=== PATIENT | male | born 1985 | race Caucasian/White ===

== ENCOUNTER 2017-08-03 00:23 | Emergency (ER) | payer OTHER ==
[2017-08-03 00:30] VITALS: BP 145/101; PULSE 94; RESP 16; TEMP 98.8; O2SAT 95
--- NOTE | 2017-08-03 00:32 | EDPHY ---
H & P Stated Complaint: jumped 8 feet out of a tree, felt pop in L foot, cannot WB on ball of foot HPI/ROS: HPI CHIEF COMPLAINT: Jumped out of a tree, left ankle pain. HISTORY OF PRESENT ILLNESS: This patient very pleasant 32-year-old male, no significant medical he does not take any daily medications he presents emergency room after states he climbed a tree he was coming out of the tree and fell 8 feet. He landed on his left foot. [place] a pop. He denies any significant pain. His left ankle is swollen. He is unable to fully plantar flex. He cannot stand on the front of his foot. Due to weakness. On exam he has an obvious Achilles tendon rupture. The ankle joint is swollen. He denies significant pain. Took ibuprofen prior to arrival. Past Medical History: Denies medical history Past Surgical History: Left hip surgery, right hand surgery Social History: Socially drinks, denies illicit drugs or tobacco. Family History: Noncontributory ROS REVIEW OF SYSTEMS: A comprehensive 10 point review of systems is otherwise negative aside from elements mentioned in the history of present illness. Exam Constitutional appears well nontoxic triage nursing summary reviewed, vital signs reviewed, awake/alert. Eyes normal conjunctivae and sclera, EOMI, PERRLA. HENT normal inspection, atraumatic, moist mucus membranes, no epistaxis, neck supple/ no meningismus, no raccoon eyes. Respiratory clear to auscultation bilaterally, normal breath sounds, no respiratory distress, no wheezing. Cardiovascular rate normal, regular rhythm, no murmur, no edema, distal pulses normal. Gastrointestinal soft, non-tender, no rebound, no guarding, normal bowel sounds, no distension, no pulsatile mass. Genitourinary no CVA tenderness. Musculoskeletal no midline vertebral tenderness, full range of motion, no calf swelling, no tenderness of extremities, no meningismus, good pulses, neurovascularly intact. Left lower extremity: Neurovascularly intact. Good cap refill. Good sensation. Good distal pulse. Left ankle shows significant swelling. Midfoot stable. Ankle stable. However obvious Achilles tendon rupture. The Achilles area is boggy and swollen. He is unable to fully plantar flex. He is unable to plantar flex when he walks or stands on his heel. Compartments are soft. Skin pink, warm, & dry, no rash, skin atraumatic. Neurologic awake, alert and oriented x 3, AAOx3, moves all 4 extremities equally, motor intact, sensory intact, CN II-XII intact, normal cerebellar, normal vision, normal speech. Psychiatric normal mood/affect. Heme/Lymph/Immune no lymphadenopathy. Differential Diagnosis: Includes but is not limited to in a particular order ankle fracture, foot fracture, Achilles tendon rupture Medical Decision Making: Plan for this patient x-ray left foot left ankle. Crutches, boot, nonweightbearing and close orthopedic follow-up. No evidence compartment syndrome on exam. Re-evaluation: X-ray of the right foot and right ankle reviewed. I do not appreciate any significant trauma however there appears to be possibly an avulsion fracture of the Achilles. No visible significant foot or ankle fracture. Patient be Achilles rupture avulsion fracture. [id number]: I did speak with Orthopedics. Spoke with lenora who is the [place] aviation tactical readiness officer for Dr. Salas. Given crutches. Nonweightbearing. Close follow-up Orthopedics. Walking boot swelling. Updated patient. He understands. Source: Patient - Personal History Current Tetanus/Diphtheria Vaccine: Unsure Current Tetanus Diphtheria and Acellular Pertussis (TDAP): Unsure - Medical/Surgical History Hx Asthma: No Hx Chronic Respiratory Disease: No Hx Diabetes: No Hx Cardiac Disease: No Hx Renal Disease: No Hx Cirrhosis: No Hx Alcoholism: No Hx HIV/AIDS: No Hx Splenectomy or Spleen Trauma: No Other PMH: left achilles injury, left femur cap - Social History Smoking Status: Never smoked Constitutional: Initial Vital Signs Temperature (C) 37.1 C 08/03/17 00:25 Heart Rate 94 08/03/17 00:25 Respiratory Rate 16 08/03/17 00:25 Blood Pressure 145/101 H 08/03/17 00:25 O2 Sat (%) 95 08/03/17 00:25 O2 Delivery Mode Room Air Allergies/Adverse Reactions: No Known Allergies Allergy (Unverified 08/03/17 00:25) Home Medications: Medication Instructions Recorded NK [No Known Home Meds] 08/03/17 Departure - Departure Disposition: Home, Routine, Self-Care Clinical Impression: Achilles tendon rupture Qualifiers: Encounter type: initial encounter Laterality: left Qualified Code(s): S86.012A - Strain of left Achilles tendon, initial encounter Condition: Good Instructions: Achilles Tendon Rupture (ED) Additional Instructions: 1.I recommend you keep your leg elevated. 2. Ice Your ankle. 3. Crutches. Walking Boot, Do not bear weight. Use Walking Boot for comfort. 4. You need to see Orthopedics. Call their for an appointment. Referrals: Demetris Salas MD [Medical Doctor] - As per Instructions
== END 2017-08-03 01:43 | disposition home or self-care (01) ==
DX: S86.012A Strain of left Achilles tendon, initial encounter (principal); W14.XXXA Fall from tree, initial encounter; Y99.8 Other external cause status; Y93.39 Activity, other involving climbing, rappelling and jumping off
CPT/HCPCS: L4386